=== PATIENT | female | born 1945 | race Caucasian/White ===

== ENCOUNTER → 2016-10-11 | Outpatient (CLI) | payer OTHER ==
[~2016-10-11] MED LIST: DYAZIDE 37.5/251 CAP PO; PREMARIN0.9 MG PO; SYNTHROID137 MCG PO; TENORMIN25 MG PO; VITAMIN D-32000 UNIT PO; VITAMIN E400 UNI1 PO
--- NOTE | ~2016-10-11 | MY11 ---
[facility] A Service of [facility] RADIOLOGY TEXT RESULTS PATIENT: STEVEN WONG LOCATION: [facility] #: [id number] : 47 UNIT #: [id number] AGE: [address]: Josep Lara MD SEX: F ORDER DR: [id number] [facility]. [place], [place] [address] [id number] O MR#: [id number] Acc #: [id number] NAME: STEVEN WONG : 1945 SEX: F STUDY DATE/TIME: 10/11/2016 9:34 UNIT: [facility] ROOM: STUDY DESCRIPTION: MY Mammogram Screening Dig Javad Attending Physician: Josep Lara M.D. Ordering Physician: Josep Lara M.D. Primary Care Physician: Josep Lara M.D. MEDICAL IMAGING REPORT This report is preliminary unless electronic signature is present EXAM Digital screening mammogram with CAD INDICATIONS Routine screening. PROCEDURE Bilateral CC and MLO views obtained on a digital mammography unit FDA-approved CAD device was utilized. COMPARISON 08/19/2014 FINDINGS Breasts are predominately fat replaced. There is no dominant mass or suspicious calcification. IMPRESSION Negative screening mammogram, screen interval in 1 year is suggested. Patients over the age of 40 are entered into a reminder system with target due date for the next mammogram. A result letter will also be sent to the patient. BIRADS: 1 - negative Dictated by... Drew Valderrama M.D. THIS IS AN ELECTRONICALLY VERIFIED REPORT [facility] A Service of [facility] RADIOLOGY TEXT RESULTS PATIENT: STEVEN WONG LOCATION: [facility] #: [id number] : [birth year] UNIT #: [id number] AGE: [address]: Josep Lara MD SEX: F ORDER DR: Drew Valderrama M.D. at 10/12/2016 7:08 AM EED/alexey TD: 10/11/2016 11:39 JOB #: [id number] MEDICAL IMAGING REPORT COPY
== END | disposition home or self-care (01) ==
LOC: CWCC 08:58
DX: Z12.31 Encounter for screening mammogram for malignant neoplasm of breast (principal)
CPT/HCPCS: G0202

== ENCOUNTER → 2016-12-28 | Day surgery (SDC) | payer OTHER ==
--- NOTE | ~2016-12-28 | OR ---
Unit #: [id number] #: [id number] Patient: STEVEN WONG [id number] [address] [id number] O MR#: [id number] NAME: STEVEN WONG. ROOM: Date of Procedure: 12/28/2016 Admission Date: 12/28/2016 Surgeon: Junior Brown M.D. : 1945 Attending Physician: Junior Brown M.D. Primary Care Physician: Josep Lara M.D. OPERATIVE REPORT PREOPERATIVE DIAGNOSIS Colorectal cancer screening in an average-risk patient. PROCEDURE PERFORMED Colonoscopy and biopsy. POSTOPERATIVE DIAGNOSES 1. Single sessile polyp in the proximal descending colon. This was removed using cold biopsy forceps. 2. Moderate sigmoid and descending colon diverticulosis. 3. Rest of the examination up to cecum was normal. The quality of the prep was excellent. RECOMMENDATIONS Follow up results of polyp histology and consider repeat colonoscopy in 5 years. SEDATION USED MAC. DESCRIPTION OF PROCEDURE Following detailed explanation of potential risks and complications of a colonoscopy, namely perforation, bleeding, complication related to sedation, the patient was brought to GI lab and laid in the left lateral decubitus position. A digital rectal examination was performed, which was normal. Lubricated tip of the Olympus video colonoscope was inserted through the anus and advanced under direct vision. The scope was advanced and passed up to sigmoid into descending colon. Multiple medium-sized diverticula were seen in this area. The scope tip was then navigated all the way up to cecum with visualization of the ileocecal valve and the appendiceal orifice. Preparation was excellent with good visualization and photodocumentation was obtained. Last several inches of the terminal ileum also visualized after intubation of the ileocecal valve and appeared normal. Successive segments of the colonic mucosa were examined upon withdrawal. A single sessile polyp was noted in the proximal descending colon. This was removed using cold biopsy forceps. No additional polyps were noted. The patient did have evidence of moderate baldwin-diverticulosis. No hemorrhoids were noted at the anal verge. The scope was withdrawn. The patient returned to the recovery area. She tolerated the procedure without any postprocedure complications. Unit #: [id number] #: [id number] Patient: STEVEN WONG W Dictated by... Greg Cee/teetee TD: 12/28/2016 22:50 JOB #: [id number] OPERATIVE REPORT Page 1 of 1 X Junior Brown MD X PROCEDURE OPERATIVE NOTE
== END | disposition home or self-care (01) ==
LOC: COPS 09:59
DX: Z12.11 Encounter for screening for malignant neoplasm of colon (principal); D12.4 Benign neoplasm of descending colon; K57.30 Diverticulosis of large intestine without perforation or abscess without bleeding; I10 Essential (primary) hypertension; E03.9 Hypothyroidism, unspecified; Z85.828 Personal history of other malignant neoplasm of skin; Z79.899 Other long term (current) drug therapy; Z90.49 Acquired absence of other specified parts of digestive tract; Z90.710 Acquired absence of both cervix and uterus
CPT/HCPCS: 88305